=== PATIENT | female | born 1950 | race Caucasian/White ===

== ENCOUNTER 2016-08-24 10:52 | Inpatient (IN) | payer BC ==
[~2016-08-24] VITALS: Ht 157.5 cm; Wt 71.6 kg
[2016-08-28] MEDS ORDERED: FIBE0.523 PO ×2 (10:14)
[2016-08-28] MEDS ORDERED: OSTETAB7 PO (10:14)
[2016-08-28] MEDS ORDERED: TYLE650T9 PO (10:14)
[2016-08-28] MEDS ORDERED: MULT-12 PO (10:14)
[2016-08-28] MEDS ORDERED: MAGN400S7 PO (10:14)
[2016-08-28] MEDS ORDERED: RANI150T PO (10:14)
[2016-08-28] MEDS ORDERED: IBUP200C PO (10:14)
[2016-08-28] MEDS ORDERED: LOSA25TA PO (10:14)
[2016-08-28] MEDS ORDERED: MELA1CAP5 PO (10:14)
[2016-09-05] MEDS ORDERED: ceFAZolin 2 GM PREMIX 50 ML IV SCH (06:00)
[2016-09-05] MEDS ORDERED: LACTATED RINGER'S 1000 ML IV SCH (06:00)
[2016-09-05] MEDS ORDERED: INSULIN HUMAN REGULAR 1,000 UNITS/10 ML VIAL SQ PRN (06:00)
[2016-09-05] MEDS ORDERED: METOPROLOL TARTRATE 25 MG TAB PO PRN (06:00)
[2016-09-05] MEDS ORDERED: SODIUM CHLORID 0.9% 500 ML IV SCH (06:00)
[2016-09-05] MEDS ORDERED: CHLORHEXIDINE GLUCONATE 4% SOLN 120 ML BTL TOP SCH (06:00)
[2016-09-05 06:08] VITALS: BP 129/84; PULSE 88; RESP 20; TEMP 97.8; O2SAT 95
[2016-09-05] MEDS ORDERED: GENTAMICIN SULFATE 80 MG/2 ML VIAL ONE (06:16)
[2016-09-05] MEDS ORDERED: DEXAMETHASONE SOD PHOS 4 MG/ML VIAL ONE (07:57)
[2016-09-05] MEDS ORDERED: MIDAZOLAM HCL 5 MG/5 ML VIAL ONE (07:57)
[2016-09-05] MEDS: TRANEXAMIC ACID INJ 716 MG in SODIUM CHLORIDE 0.9% INJ 100 ML IV SCH ×2 (08:00→08:31)
[2016-09-05] MEDS ORDERED: EXPAREL PERI-ARTICULAR INJECTION (TOTAL VOL. 100 ML) P-ARTICULR SCH ×2 (08:00)
[2016-09-05] MEDS ORDERED: TRANEXAMIC ACID INJ 716 MG in SODIUM CHLORIDE 0.9% INJ 100 ML IV SCH (11:00)
[2016-09-05] MEDS ORDERED: DO NOT ADM ANY ANTICOAGULANT DRUGS XX PRN (11:00)
[2016-09-05] MEDS ORDERED: ZOLPIDEM TARTRATE 5 MG TAB PO PRN (11:15)
[2016-09-05] MEDS: LACTATED RINGER'S 1000 ML INJ 1,000 ML IV SCH (11:15)
[2016-09-05] MEDS ORDERED: Post-op Orders (for Pharmacy) MISC XX ONE (11:15)
[2016-09-05] MEDS ORDERED: PSYLLIUM PO SCH ×2 (11:15)
[2016-09-05] MEDS ORDERED: MORPHINE SULFATE 4 MG/ML INJ IV PUSH PRN (11:15)
[2016-09-05] MEDS ORDERED: TRANEXAMIC ACID INJ 0 MG in SODIUM CHLORIDE 0.9% INJ 100 ML IV SCH (11:15)
[2016-09-05] MEDS ORDERED: ONDANSETRON HCL 4 MG/2 ML VIAL IVP PRN (11:15)
[2016-09-05] MEDS ORDERED: SODIUM CHLORIDE 0.9% FLUSH 5 ML FLUSH IVF PRN (11:15)
[2016-09-05] MEDS ORDERED: MAGNESIUM HYDROXIDE SUSP 30 ML CUP PO PRN (11:15)
[2016-09-05] MEDS ORDERED: *morphine SULFATE 8 MG/ML PERIprocedure ONLY ONE (12:48)
[2016-09-05] MEDS ORDERED: BUPIVACAINE HCL PF 0.5% 30 ML VIAL NB ONE (12:55)
--- NOTE | 2016-09-05 13:03 | RADRPT ---
EXAM DATE/TIME: 09/05/2016 11:46 [place] COMPARISON: No previous studies available for comparison. INDICATIONS : Post op right knee replacement. MEDICAL HISTORY : None. SURGICAL HISTORY : None. ENCOUNTER: Initial ACUITY: 1 day PAIN SCORE: 0/10 LOCATION: Right knee FINDINGS: AP and lateral views of the right knee were obtained and demonstrate the patient status post total kn ee arthroplasty. The femoral and tibial components are intact. The patellar component is unremarkable . There are surgical drains in place. Anterior soft tissue swelling is noted with mild overlying em fact. CONCLUSION: SPECT postoperative changes status post arthroplasty. Dex Tabor MD on September 05, 2016 at 13:01 Board Certified Radiologist. This report was verified electronically.
[2016-09-05] MEDS ORDERED: *Lactated Ringer's INJ 1,000 ML IV ONE (13:28)
[2016-09-05] MEDS ORDERED: ePHEDrine/NS 25 MG/5 ML SYR IV ONE (13:28)
[2016-09-05] MEDS ORDERED: PROPOFOL 200 MG/20 ML AMP IV ONE (13:28)
[2016-09-05] MEDS ORDERED: PHENYLEPH/NS 1000 MCG/10 ML SYR IV ONE (13:28)
[2016-09-05] MEDS: ACETAMINOPHEN/HYDROcodone 325 MG/7.5 MG TAB PO PRN (15:04)
[2016-09-05] MEDS: KETOROLAC TROMETHAMINE 30 MG/ML (IVP) VIAL IVP SCH ×2 (15:05→20:17)
--- NOTE | 2016-09-05 17:33 | PD.CONS ---
HPI Service [facility] Consult Requested By Dr. Biswas Reason for Consult Medical management Primary Care Physician Venkatesh Perez MD Diagnoses: History of Present Illness Patient is a very pleasant 66-year-old female very active who is admitted under orthopedic services and underwent right total knee arthroplasty today. Patient apparently has been having pain for the last 2 years worsening over the past few months. She has history of chronic constipation and had had 9 colonoscopies in the past. She takes the very specific bowel regimen that works for her. She is currently postop day 0 awake alert very interactive denies any pain currently. Review of Systems Constitutional: DENIES: Diaphoretic episodes, Fatigue, Fever, Weight gain, Weight loss, Chills, Dizziness, Change in appetite, Night Sweats Endocrine: DENIES: Abnorml menstrual pattern, Heat/cold intolerance, Polydipsia , Polyuria, Polyphagia Eyes: DENIES: Blurred vision, Diplopia, Eye inflammation, Eye pain, Vision loss , Photosensitivity, Double Vision Ears, nose, mouth, throat: DENIES: Tinnitus, Hearing loss, Vertigo, Nasal discharge, Oral lesions, Throat pain, Hoarseness, Ear Pain, Running Nose, Epistaxis, Sinus Pain, Toothache, Odynophagia Respiratory: DENIES: Apneas, Cough, Snoring, Wheezing, Hemoptysis, Sputum production, Shortness of breath Cardiovascular: DENIES: Chest pain, Palpitations, Syncope, Dyspnea on Exertion , PND, Lower Extremity Edema, Orthopnea, Claudication Gastrointestinal: COMPLAINS OF: Constipation Genitourinary: DENIES: Abnormal vaginal bleeding, Dysmenorrhea, Dyspareunia, Sexual dysfunction, Urinary frequency, Urinary incontinence, Urgency, Hematuria , Dysuria, Nocturia, Vaginal discharge Musculoskeletal: COMPLAINS OF: Joint pain, DENIES: Muscle aches, Stiffness, Joint Swelling, Back pain, Neck pain Integumentary: DENIES: Abnormal pigmentation, Pruritus, Rash, Nail changes, Breast masses, Breast skin changes, Nipple discharge Hematologic/lymphatic: DENIES: Bruising, Lymphadenopathy Immunologic/allergic: DENIES: Eczema, Urticaria Neurologic: DENIES: Abnormal gait, Headache, Localized weakness, Paresthesias, Seizures, Speech Problems, Tremor, Poor Balance Psychiatric: DENIES: Anxiety, Confusion, Mood changes, Depression, Hallucinations, Agitation, Suicidal Ideation, Homicidal Ideation, Delusions Past Family Social History Allergies: Coded Allergies: Sulfa (Verified Allergy, Severe, Anaphylaxis, 08/28/16) Beta Blockers (Verified Adverse Reaction, Severe, hair falls out or develops severe cough, 09/05/16) Past Medical History Chronic constipation patient had had 9 colonoscopies in the past history of polyps removed. Past Surgical History Bilateral carpal tunnel surgery Uterine fibroid removal Reported Medications Tylenol Lactulose 25 cc daily Milk of magnesia 45 cc daily Psyllium 520 mg daily Ranitidine 150 mg twice a day Multivitamin Melatonin bedtime Active Ordered Medications See EMR Family History Very strong family history of colon cancer Social History No history of smoking Drinks 2 margaritas a year occasional wine Physical Exam Vital Signs Vital Signs Date Time Temp Pulse Resp B/P Pulse Ox O2 Delivery O2 Flow Rate FiO2 09/05/16 16:05 15 09/05/16 16:04 15 09/05/16 13:30 15 09/05/16 10:47 97.8 99 14 93/51 95 Nasal Cannula 2 09/05/16 06:08 97.8 88 20 129/84 95 Physical Exam GENERAL: This is a well-nourished, well-developed patient, in no apparent distress. SKIN: No rashes, ecchymoses or lesions. Cool and dry. HEAD: Atraumatic. Normocephalic. No temporal or scalp tenderness. EYES: Pupils equal round and reactive. Extraocular motions intact. No scleral icterus. No injection or drainage. ENT: Nose without bleeding, purulent drainage or septal hematoma. Throat without erythema, tonsillar hypertrophy or exudate. Uvula midline. Airway patent. NECK: Trachea midline. No JVD or lymphadenopathy. Supple, nontender, no meningeal signs. CARDIOVASCULAR: Regular rate and rhythm without murmurs, gallops, or rubs. RESPIRATORY: Clear to auscultation. Breath sounds equal bilaterally. No wheezes , rales, or rhonchi. GASTROINTESTINAL: Abdomen soft, non-tender, nondistended.. No guarding. MUSCULOSKELETAL: Right lower extremity with postop elastic bandage in place NEUROLOGICAL: Awake and alert. Grossly intact Laboratory Laboratory Tests Test 09/05/16 06:10 Blood Type A POSITIVE Antibody Screen NEGATIVE Blood Bank Comment Imaging Last Impressions Knee X-Ray 09/05/16 1101 Signed Impressions: Service Date/Time: Monday, September 05, 2016 11:46 - CONCLUSION: SPECT postoperative changes status post arthroplasty. Dex Tabor MD Assessment and Plan Assessment and Plan 66-year-old female Status post right total knee arthroplasty 09/05 Orthopedic service following PRN pain meds History of chronic constipation Continue on home bowel regimen Continue on ranitidine 150 mg twice a bid History of hypertension Continue on Cozaar 25 mg daily Continue on her melatonin when necessary at at bedtime for sleep DVT prophylaxis per primary service- placed on aspirin 325 milligrams by mouth twice a Thank you for this consult we'll follow patient with you Discharge planning patient wants to go home with home physical therapy. case management consulted Discussed Condition With Patient and at bedside Chris Hayes MD Sep 05, 2016 17:33
[2016-09-05 17:40] VITALS: BP 97/67; PULSE 96; RESP 18; TEMP 96.4; O2SAT 95
[2016-09-05 20:00] VITALS: BP 93/59; PULSE 91; RESP 17; TEMP 96.4; O2SAT 94
[2016-09-05] MEDS: SODIUM CHLORIDE 0.9% FLUSH 5 ML FLUSH IVF SCH (20:18)
[2016-09-05] MEDS: FAMOTIDINE 20 MG TAB PO SCH (20:18)
[2016-09-05] MEDS ORDERED: MELATONIN PO SCH (21:00)
[2016-09-05] MEDS ORDERED: BLACK COHOSH PO SCH (21:00)
[2016-09-05] MEDS ORDERED: ACETAMINOPHEN PO SCH (21:00)
[2016-09-05] MEDS ORDERED: MAGNESIUM HYDROXIDE SUSP 30 ML CUP PO SCH (21:00)
[2016-09-05] MEDS ORDERED: NATURAL PRODUCTS PO SCH (21:00)
[2016-09-05] MEDS ORDERED: HOPS PO SCH (21:00)
[2016-09-06] VITALS (7 sets, daily range): BP systolic 96–126; BP diastolic 59–78; PULSE 82–103; RESP 16; TEMP 95.9–97.1; O2SAT 94–98
[2016-09-06] MEDS: LACTATED RINGER'S 1000 ML INJ 1,000 ML IV SCH ×2 (01:18→12:01)
[2016-09-06] MEDS: KETOROLAC TROMETHAMINE 30 MG/ML (IVP) VIAL IVP SCH ×4 (01:18→20:45)
[2016-09-06 06:56] LABS: HEMATOCRIT 26.4 % (35.0-46.0); REVIEW FLAG FINAL
--- NOTE | 2016-09-06 07:05 | PD.ORT.PN ---
Subjective Post Op Day #: 1 Subjective Remarks She is doing well. There is not much pain. Range of Motion -10 to 80 degrees. Distance Walked 70 feet. Objective Vitals Vital Signs Date Time Temp Pulse Resp B/P Pulse Ox O2 Delivery O2 Flow Rate FiO2 09/06/16 04:00 96.7 88 16 126/78 97 09/06/16 00:00 96.8 82 16 106/63 94 09/05/16 20:00 96.4 91 17 93/59 94 09/05/16 17:40 96.4 96 18 97/67 95 09/05/16 17:20 97.5 68 16 110/72 95 Room Air 09/05/16 16:05 15 09/05/16 16:04 15 09/05/16 13:30 15 09/05/16 13:00 97.5 86 14 111/70 98 Nasal Cannula 2 09/05/16 12:45 88 14 118/65 99 Nasal Cannula 2 09/05/16 12:30 80 14 117/72 99 Nasal Cannula 2 09/05/16 12:15 80 14 108/69 99 Nasal Cannula 2 09/05/16 12:00 79 14 115/74 99 Nasal Cannula 2 09/05/16 11:45 80 14 109/67 98 Nasal Cannula 2 09/05/16 11:30 83 14 105/65 97 Nasal Cannula 2 09/05/16 11:15 83 14 95/65 95 Nasal Cannula 2 09/05/16 11:00 85 14 99/57 96 Nasal Cannula 2 09/05/16 10:47 97.8 99 14 93/51 95 Nasal Cannula 2 I/O 09/05/16 09/05/16 09/05/16 09/06/16 09/06/16 09/06/16 07:00 15:00 23:00 07:00 15:00 23:00 Intake Total 2065 ml 240 ml 360 ml Output Total 1865 ml Balance 200 ml 240 ml 360 ml Intake Oral 240 ml 240 ml 360 ml IV Total 425 ml Other 1400 ml Output Urine Total 1600 ml Drainage Total 65 ml Estimated Blood Loss 200 ml # Voids 1 2 # Bowel Movements 0 1 Result Diagram: 09/06/16 0537 Imaging Last 24 hours Impressions Knee X-Ray 09/05/16 1101 Signed Impressions: Service Date/Time: Monday, September 05, 2016 11:46 - CONCLUSION: SPECT postoperative changes status post arthroplasty. Dex Tabor MD Objective Remarks She is resting comfortably, supine in bed in the CPM. The neurovascular status is intact. The dressing is dry and intact. Assessment & Plan Ortho Post Op Day #: 1 Problem List: (1) Status post total right knee replacement Plan: Continue postop care and PT. Assessment and Plan Condition: Good. Orthopaedically stable. DVT prophylaxis: ED stockings, sequentials, Xarelto. Discharge plans: Home with [facility]. Has appointment. Sara Biswas MD (Charles) Sep 06, 2016 07:05
--- NOTE | 2016-09-06 08:22 | HHI.FF ---
Face to Face Verification Diagnosis: (1) Status post total right knee replacement Physical Therapy Gait training Knee: Total knee, Protocol: Right, Full weight bearing Right LE Weight Bearing: WB as tolerated Right LE Range of Motion: Active ROM (AROM, AAROM, PROM, PRE. ROM goal is 0 to 135 degrees.) Nursing Nursing: Dressing changes Dressing Changes: Daily dressing change, Coverderm/Primapore Additional Instructions Remove steristrips on postop day 14. I have seen patient Laurel Peraza on 09/06/16. My clinical findings support the need for the requested home health care services because: Ltd mobility - disease progression Limited ability to care for self High risk of falls I certify that my clinical findings support that this patient is homebound because: Post-op weakness Unsteady gait/balance Unsafe to leave home unassisted Sara Biswas MD (Charles) Sep 06, 2016 08:22
[2016-09-06] MEDS ORDERED: WALKER WHEELS/F1 MIS (08:24)
[2016-09-06] MEDS ORDERED: HYDR-3580 PO (08:24)
[2016-09-06] MEDS ORDERED: ASPI81TA11 PO (08:24)
[2016-09-06] MEDS ORDERED: MISC-163 (08:24)
[2016-09-06] MEDS: MULTIVITAMIN HEMATINIC THERAPEUTIC TAB PO SCH (09:00)
[2016-09-06] MEDS: LOSARTAN 25 MG TAB PO SCH (09:09)
[2016-09-06] MEDS: FAMOTIDINE 20 MG TAB PO SCH ×2 (09:10→20:47)
[2016-09-06] MEDS: ACETAMINOPHEN/HYDROcodone 325 MG/7.5 MG TAB PO PRN ×3 (09:11→18:19)
[2016-09-06] MEDS: SODIUM CHLORIDE 0.9% FLUSH 5 ML FLUSH IVF SCH ×2 (09:12→20:47)
[2016-09-06] MEDS ORDERED: ASPIRIN EC 81 MG TABEC PO SCH (10:00)
--- NOTE | 2016-09-06 10:03 | HHI.PR ---
Subjective Remarks patient very motivated with physical therapy pain controlled Objective Vitals Vital Signs Date Time Temp Pulse Resp B/P Pulse Ox O2 Delivery O2 Flow Rate FiO2 09/06/16 04:00 96.7 88 16 126/78 97 09/06/16 00:00 96.8 82 16 106/63 94 09/05/16 20:00 96.4 91 17 93/59 94 09/05/16 17:40 96.4 96 18 97/67 95 09/05/16 17:20 97.5 68 16 110/72 95 Room Air 09/05/16 16:05 15 09/05/16 16:04 15 09/05/16 13:30 15 09/05/16 13:00 97.5 86 14 111/70 98 Nasal Cannula 2 09/05/16 12:45 88 14 118/65 99 Nasal Cannula 2 09/05/16 12:30 80 14 117/72 99 Nasal Cannula 2 09/05/16 12:15 80 14 108/69 99 Nasal Cannula 2 09/05/16 12:00 79 14 115/74 99 Nasal Cannula 2 09/05/16 11:45 80 14 109/67 98 Nasal Cannula 2 09/05/16 11:30 83 14 105/65 97 Nasal Cannula 2 09/05/16 11:15 83 14 95/65 95 Nasal Cannula 2 09/05/16 11:00 85 14 99/57 96 Nasal Cannula 2 09/05/16 10:47 97.8 99 14 93/51 95 Nasal Cannula 2 I/O 09/05/16 09/05/16 09/05/16 09/06/16 09/06/16 09/06/16 07:00 15:00 23:00 07:00 15:00 23:00 Intake Total 2065 ml 811 ml 360 ml Output Total 1865 ml 70 ml 70 ml Balance 200 ml 741 ml 290 ml Intake Oral 240 ml 240 ml 360 ml IV Total 425 ml 571 ml Other 1400 ml Output Urine Total 1600 ml Drainage Total 65 ml 70 ml 70 ml Estimated Blood Loss 200 ml # Voids 1 2 # Bowel Movements 0 1 Result Diagram: 09/06/16 0537 Imaging Last Impressions Knee X-Ray 09/05/16 1101 Signed Impressions: Service Date/Time: Monday, September 05, 2016 11:46 - CONCLUSION: SPECT postoperative changes status post arthroplasty. Dex Tabor MD Objective Remarks awake and alert, not in distress anicteric lungs clear regular rhythm abdomen soft, nontender right LE- post op dressing in place Procedures 09/05- right TKA A/P Assessment and Plan 66-year-old female Status post right total knee arthroplasty 09/05 Orthopedic service following PT daily. prn pain meds History of chronic constipation Continue on home bowel regimen Continue on ranitidine 150 mg twice a bid History of hypertension Continue on Cozaar 25 mg daily Postop Anemia VS stable started on MVI Continue on her melatonin when necessary at at bedtime for sleep DVT prophylaxis per primary service- placed on aspirin 325 milligrams by mouth twice a day DC planning- patient prefers to go home with home PT CM ff along with us for DC needs/DME Chris Hayes MD Sep 06, 2016 10:03
[2016-09-06] MEDS: RIVAROXABAN 10 MG TAB PO SCH (13:10)
[2016-09-06] MEDS: MAGNESIUM HYDROXIDE SUSP 30 ML CUP PO SCH (20:45)
[2016-09-06] MEDS: DOCUSATE SODIUM 100 MG CAP PO SCH (20:47)
[2016-09-06] MEDS ORDERED: SENNOSIDES 8.6 MG TAB PO SCH (21:00)
[2016-09-07] VITALS: BP 108/65; PULSE 97; RESP 16; TEMP 98.2; O2SAT 95
[2016-09-07] MEDS: LACTATED RINGER'S 1000 ML INJ 1,000 ML IV SCH (00:31)
[2016-09-07] MEDS: ACETAMINOPHEN/HYDROcodone 325 MG/7.5 MG TAB PO PRN ×3 (02:10→12:31)
[2016-09-07] MEDS: KETOROLAC TROMETHAMINE 30 MG/ML (IVP) VIAL IVP SCH ×2 (02:14→08:24)
[2016-09-07 04:00] VITALS: BP 106/60; PULSE 94; RESP 17; TEMP 98.8; O2SAT 94
[2016-09-07 05:08] LABS: HEMATOCRIT 23.1 % (35.0-46.0); REVIEW FLAG FINAL
--- NOTE | 2016-09-07 06:55 | PD.ORT.PN ---
Subjective Post Op Day #: 2 Subjective Remarks She is doing well. There is not much pain. Range of Motion 0 to 90 degrees. Distance Walked 150 feet. Objective Vitals Vital Signs Date Time Temp Pulse Resp B/P Pulse Ox O2 Delivery O2 Flow Rate FiO2 09/07/16 04:00 98.8 94 17 106/60 94 09/07/16 00:00 98.2 97 16 108/65 95 09/06/16 22:06 96 21 09/06/16 20:00 97.1 103 16 107/66 96 09/06/16 19:19 16 09/06/16 16:00 95.9 89 16 96/59 97 09/06/16 14:24 97 21 09/06/16 10:11 16 09/06/16 10:11 16 09/06/16 07:52 96.2 94 16 111/73 98 I/O 09/06/16 09/06/16 09/06/16 09/07/16 09/07/16 09/07/16 07:00 15:00 23:00 07:00 15:00 23:00 Intake Total 360 ml 480 ml 240 ml Output Total 70 ml 100 ml 160 ml 40 ml Balance 290 ml 380 ml 80 ml -40 ml Intake Oral 360 ml 480 ml 240 ml Drainage Total 70 ml 100 ml 160 ml 40 ml # Voids 2 3 1 # Bowel Movements 1 0 Result Diagram: 09/07/16 0359 Imaging Last 24 hours Impressions Knee X-Ray 09/05/16 1101 Signed Impressions: Service Date/Time: Monday, September 05, 2016 11:46 - CONCLUSION: SPECT postoperative changes status post arthroplasty. Dex Tabor MD Objective Remarks She is resting comfortably, supine in bed in the CPM. The neurovascular status is intact. The dressing is dry and intact. Assessment & Plan Ortho Post Op Day #: 2 Problem List: (1) Status post total right knee replacement Plan: Continue postop care and PT. Assessment and Plan Condition: Good. Orthopaedically stable. DVT prophylaxis: ED stockings, sequentials, Xarelto. Discharge plans: Home with [facility]. Has appointment. Sara Biswas MD (Charles) Sep 07, 2016 06:55
[2016-09-07] MEDS ORDERED: XARE10TA PO (07:01)
--- NOTE | 2016-09-07 07:32 | MP ---
cc: Jerry BURNS. DATE OF SURGERY 09/05/2016 PREOPERATIVE DIAGNOSIS Primary osteoarthritis right knee. POSTOPERATIVE DIAGNOSIS Primary osteoarthritis right knee. OPERATION PERFORMED Right total knee arthroplasty using Cem Triathlon prosthesis (uncemented). SURGEON Magaly Burns MD ROUSTABOUT Alexis Schwartz CSFA ANESTHESIA Spinal with supplemental local and adductor canal block. INDICATIONS AND FINDINGS This 66-year-old woman has a 5 to 6-year history of right knee pain that has progressively worsened in spite of treatment with anti-inflammatory agents, analgesics, activity modification, exercise, ambulatory aids and physical therapy. These no longer give improvement. [place] she walks very slowly but has to rest. She has swelling and giving-way. She has difficulty with stairs and chairs. She needs to lean on a cart when shopping. Physical findings showed genu varum with tenderness in the medial compartment especially. X-rays showed loss of articular cartilage to [id number] in the medial compartment with tricompartmental osteophytes and subchondral sclerosis. Operative findings showed severe osteoarthritis particularly medial compartmental but also patellofemoral and lateral. She had a flexion deformity of about 20 degrees. There is medial laxity. She had severe osteophytes. PROSTHESIS USED Cem Triathlon prosthesis with the femur being a Press-Fit cruciate-retaining right femur size 3, with the tibial baseplate of tritanium 3 and a 9-mm X3 polyethylene spacer, also cruciate-retaining. The patella was a 32-mm asymmetric tritanium backed patella. PROCEDURE The patient received a regional anesthetic in the form of an abductor canal block preoperatively. She was transferred to the clean-air operating suite where a spinal anesthetic was administered. She was placed into a supine position on the operating table with a small bolster under the right hip. A pneumatic tourniquet was placed about the right thigh. The limb was then prepped with alcohol, Hibiclens and Chloraprep and draped in the usual manner with the knee draped free. She received tranexamic acid and prophylactic antibiotic in the form of Ancef at the appropriate intervals preoperatively. An appropriate time-out procedure was carried out. Local anesthesia was administered in the incision site prior to making the incision. An anterior incision was then made from about three fingerbreadths above the superior medial pole of the patella, down to the tibial tubercle on the medial side. The incision was deepened through the subcutaneous tissues to the retinacular structures which were exposed medially and laterally. A medial retinacular incision was then made from the superior medial pole of patella down to the tibial tubercle. This was then extended up in the quadriceps tendon splitting it longitudinally in the medial one-third. The patella was then reflected laterally. Medial and lateral dissection was carried out. The infrapatellar fat pad was debulked. The posterior surface of the patella was excised with the oscillating saw taking care to prevent injury to associated structures. Hemostasis was carefully achieved throughout the procedure with electrocautery. A patellar protector was applied to the posterior aspect of the patella. A fenestration was made in the distal end of the femur and proximal tibia for intramedullary referencing guides. The distal femoral cutting guide and jig were assembled for a 5-degree, 8-mm cut. Cutting block was stabilized with pins. The jig was removed. The distal femoral cut was completed with the oscillating saw. Whitesides line was marked. The sizing guide was positioned in place. The size was determined to be a size 3. The four-in-one cutting block was then positioned in place and held with pins. Anterior and posterior cuts were made followed by posterior and anterior chamfer cuts. Osteophytes were trimmed. Medial and lateral meniscectomies were completed. Proximal tibial cutting guide and jig were then assembled the appropriate depth of cut. The alignment was checked and the guide stabilized with pins. The depth of cut was verified with a stylus and then adjusted with the stylus. The cutting block was stabilized with pins. The jig was removed. The depth of cut was adjusted according to the spacer block. The proximal tibial cut was then completed with the oscillating saw taking care to prevent injury to associated structures. The spacer block verified the appropriate depth of cut. Local anesthesia was administered throughout the knee with Exparel. The tibial baseplate chosen was a size 3. With the 9-mm spacer inserted, the femoral component was impacted into place and seated appropriately. The tibial baseplate was positioned appropriately and stabilized with pins. The alignment was checked and found to be appropriate. The patella drill guide was positioned and drill holes made for the 32-mm patella. The patella trial was positioned. The knee was taken through a range of motion which was easily 0 degrees extension to 140 degrees of flexion with excellent stability in flexion and extension and appropriate tracking of the patella. The patella trial was removed. After femoral drill holes were made, the femoral trial was removed. The tibial spacer was removed. The tibial punch was impacted through its guide after placement of bone graft in the distal femur and proximal tibia. The tibial baseplate trial was removed. The tibial drill guide was positioned and drill holes made. This was removed. After cleaning the cut ends of bone with pulse lavage, the tibial baseplate was impacted into place and seated appropriately. The spacer was inserted into this. The femoral component was then impacted into place and seated appropriately. The patella was then positioned in place and held with the patella vice. The prosthesis used was a NanoSteel Triathlon prosthesis with the femur being an uncemented right size 3 cruciate-retaining, the tibia being a tritanium baseplate size 3 with a 9-mm spacer also cruciate-retaining of X3 polyethylene and the patella being a size 32-mm asymmetric tritanium backed patella. Range of motion was checked and was found to be 0 degrees extension to 140 degrees of flexion. There was excellent stability and excellent tracking. Wound closure then commenced using 0 Vicryl interrupted [id number] sutures for the retinacular and capsular structures, 2-0 Vicryl interrupted simple sutures with buried knots for the subcutaneous tissues and 4-0 Monocryl continuous subcuticular closure for the skin. The wounds were dressed with Steri-Strips followed by dry dressing, sterile Sof-Rol, cooling pad, further sterile Sof-Rol and Ravi bandage from the base of the toes to midthigh. The patient was transferred from the operating room to the recovery room in satisfactory condition having tolerated the procedure well. COUNTS Correct. SPECIMENS None. ESTIMATED BLOOD LOSS 200 mL. MD DEMARCO Bray/KWAKU /6:09 PM /6:57 AM
--- NOTE | 2016-09-07 07:37 | HHI.PR ---
Subjective Remarks looking forward to going home today had some pain last night- relieved with pain meds +BM, no melena or hematochezia Objective Vitals Vital Signs Date Time Temp Pulse Resp B/P Pulse Ox O2 Delivery O2 Flow Rate FiO2 09/07/16 04:00 98.8 94 17 106/60 94 09/07/16 00:00 98.2 97 16 108/65 95 09/06/16 22:06 96 21 09/06/16 20:00 97.1 103 16 107/66 96 09/06/16 19:19 16 09/06/16 16:00 95.9 89 16 96/59 97 09/06/16 14:24 97 21 09/06/16 10:11 16 09/06/16 10:11 16 09/06/16 07:52 96.2 94 16 111/73 98 I/O 09/06/16 09/06/16 09/06/16 09/07/16 09/07/16 09/07/16 07:00 15:00 23:00 07:00 15:00 23:00 Intake Total 360 ml 480 ml 240 ml 360 ml Output Total 70 ml 100 ml 160 ml 40 ml Balance 290 ml 380 ml 80 ml 320 ml Intake Oral 360 ml 480 ml 240 ml 360 ml Drainage Total 70 ml 100 ml 160 ml 40 ml # Voids 2 3 1 3 # Bowel Movements 1 0 1 Result Diagram: 09/07/16 0359 Imaging Last Impressions Knee X-Ray 09/05/16 1101 Signed Impressions: Service Date/Time: Monday, September 05, 2016 11:46 - CONCLUSION: SPECT postoperative changes status post arthroplasty. Dex Tabor MD Objective Remarks awake and alert, not in distress anicteric lungs clear regular rhythm abdomen soft, nontender right LE- post op dressing in place, on CPM Procedures 09/05- right TKA A/P Assessment and Plan 66-year-old female Status post right total knee arthroplasty 09/05 Orthopedic service following PT daily. prn pain meds History of chronic constipation Continue on home bowel regimen Continue on ranitidine 150 mg twice a bid, prn COlace Post op Anemia- VS stable on MVI, OP ff up with PCP History of hypertension Continue on Cozaar 25 mg daily Continue on her melatonin when necessary at at bedtime for sleep DVT prophylaxis per primary service- DC planning- patient prefers to go home with home PT if cleared with Primary service CM ff along with us for DC needs/DME arrangements PCP ff up with Dr Chris PICHARDO ff up with Orthopedic Chris Hayes MD Sep 07, 2016 07:37 Chris Hayes MD Sep 07, 2016 07:37
[2016-09-07 08:00] VITALS: BP 110/72; PULSE 93; RESP 18; TEMP 98.3; O2SAT 95
[2016-09-07] MEDS: FAMOTIDINE 20 MG TAB PO SCH (08:24)
[2016-09-07] MEDS: MAGNESIUM HYDROXIDE SUSP 30 ML CUP PO SCH (08:25)
[2016-09-07] MEDS: DOCUSATE SODIUM 100 MG CAP PO SCH (08:25)
[2016-09-07] MEDS: SODIUM CHLORIDE 0.9% FLUSH 5 ML FLUSH IVF SCH (08:25)
[2016-09-07] MEDS: MULTIVITAMIN HEMATINIC THERAPEUTIC TAB PO SCH (08:26)
[2016-09-07] MEDS: LOSARTAN 25 MG TAB PO SCH (08:27)
[2016-09-07] MEDS: RIVAROXABAN 10 MG TAB PO SCH (11:58)
[2016-09-07 12:00] VITALS: BP 125/77; PULSE 96; RESP 18; TEMP 98.3; O2SAT 92
== END 2016-09-07 15:36 | disposition home health service (06) | DRG 470 ==
LOC: HSDI 09-05 05:33 → EDUNIT# 09-05 08:30 → N06A 09-05 17:44
PROVIDERS: ADMIT Orthopaedic Surgery; ATTEND Orthopaedic Surgery
PROC: 3E0T3CZ (ICD-10-PCS; 2016-09-05)
PROC: 0SRC0JA Replacement of Right Knee Joint with Synthetic Substitute, Uncemented, Open Approach (ICD-10-PCS; principal; 2016-09-05 08:16)
DX: M17.11 Unilateral primary osteoarthritis, right knee (principal); M21.161 Varus deformity, not elsewhere classified, right knee; I10 Essential (primary) hypertension; K59.09 Other constipation; D64.9 Anemia, unspecified
CPT/HCPCS: 73560; 85014; 85018; 86850; 86900; 86901; 94150; C1776; C9290; J0690; J1100; J1580; J1885; J2250; J2270; J2370; J2405; J7120

== ENCOUNTER → 2016-08-28 | Outpatient (CLI) | payer BC ==
[~2016-08-28] MED LIST: ASPI81TA11 PO; FIBE0.523 PO; HYDR-3580 PO; IBUP200C PO; LOSA25TA PO; MAGN400S7 PO; MELA1CAP5 PO; MISC-163; MULT-12 PO; OSTETAB7 PO; RANI150T PO; TYLE650T9 PO; WALKER WHEELS/F1 MIS; XARE10TA PO
[2016-08-28 08:52] LABS: HEMATOCRIT 35.9 % (35.0-46.0); MEAN CELL VOLUME 86.6 FL (80.0-100.0); MEAN CORPUSCULAR HGB CONC 33.5 % (32.0-36.0); PLATELET COUNT 260 TH/MM3 (150-450); RED BLOOD COUNT 4.15 MIL/MM3 (4.00-5.30); REVIEW FLAG FINAL; WHITE BLOOD COUNT 6.5 TH/MM3 (4.0-11.0)
[2016-08-28 09:03] LABS: INTERNATIONAL NORMALIZED RATIO 0.9 RATIO; PROTHROMBIN TIME - PATIENT 10.1 SEC (9.8-11.6)
[2016-08-28 09:23] LABS: BICARBONATE 29.5 MEQ/L (21.0-32.0); POTASSIUM 4.3 MEQ/L (3.5-5.1)
[2016-08-28 09:51] LABS: GLUCOSE,URINE NEG (NEG); KETONE, URINE NEG (NEG); PH, URINE 7.5 (5.0-8.5); URINE COLOR YELLOW (YELLW/STRAW)
[2016-08-28 09:52] LABS: BLOOD, URINE NEG (NEG); MUCUS URINE FEW /lpf (OCC); NITRITE,URINE NEG (NEG)
[2016-08-28 09:53] LABS: COMMENT (UR) CATH-CULT NOT IND; CULTURE IF INDICATED CATH CULTURE NOT IND
--- NOTE | 2016-08-29 17:03 | EKG ---
Date Performed: 08/28/2016 Time Performed: 08:36:08 PTAGE: 66 years EKG: Sinus rhythm BORDERLINE RIGHT AXIS DEVIATION MINIMAL ST DEPRESSION BORDERLINE ECG NO PREVIOUS TRACING DOCTOR: Kosta Rodriguez Interpretating Date/Time 08/29/2016 16:59:51
== END ==
LOC: CPRE 08:05
PROVIDERS: ATTEND Orthopaedic Surgery
DX: Z01.812 Encounter for preprocedural laboratory examination (principal); Z01.810 Encounter for preprocedural cardiovascular examination; M17.11 Unilateral primary osteoarthritis, right knee
CPT/HCPCS: 36415; 80048; 81001; 85027; 85610; 85730; 93005

== ENCOUNTER → 2017-06-29 | Outpatient (CLI) | payer MEDICARE ==
[~2017-06-29] MED LIST changes: -ASPI81TA11 PO; +ASPI81TA23 PO; +CALC1TAB12 PO; +FIBE625T10 PO; -HYDR-3580 PO; +MAPA500T13 PO; +MULTTAB67 PO
[2017-06-29 09:47] LABS: MEAN CELL VOLUME 82.1 FL (80.0-100.0); MEAN CORPUSCULAR HEMOGLOBIN 27.1 PG (27.0-34.0); PLATELET COUNT 272 TH/MM3 (150-450); RED BLOOD COUNT 4.14 MIL/MM3 (4.00-5.30); RED CELL DISTRIBUTION WIDTH 18.4 % (11.6-17.2); REVIEW FLAG FINAL; WHITE BLOOD COUNT 6.6 TH/MM3 (4.0-11.0)
[2017-06-29 09:59] LABS: APTT (PATIENT) 24.2 SEC (24.3-30.1); PROTHROMBIN TIME - PATIENT 10.1 SEC (9.8-11.6)
[2017-06-29 10:04] LABS: BLOOD, URINE NEG (NEG); GLUCOSE,URINE NEG (NEG); KETONE, URINE NEG (NEG); MUCUS URINE FEW /lpf (OCC); NITRITE,URINE NEG (NEG); URINE COLOR LIGHT-YELLOW (YELLW/STRAW)
[2017-06-29 10:09] LABS: COMMENT (UR) CATH-CULT NOT IND; CULTURE IF INDICATED CATH CULTURE NOT IND
[2017-06-29 10:19] LABS: BICARBONATE 27.7 MEQ/L (21.0-32.0)
--- NOTE | 2017-06-30 14:01 | EKG ---
Date Performed: 06/29/2017 Time Performed: 09:17:18 PTAGE: 67 years EKG: Sinus rhythm with borderline first degree AV block PREVIOUS TRACING : 08/28/2016 08.36 Compared to prior tracing no significant change DOCTOR: Herson Richardson Interpretating Date/Time 06/30/2017 14:00:39
== END ==
LOC: CPRE 08:55
PROVIDERS: ATTEND Orthopaedic Surgery
DX: Z01.812 Encounter for preprocedural laboratory examination (principal); Z01.810 Encounter for preprocedural cardiovascular examination; M17.12 Unilateral primary osteoarthritis, left knee; M21.162 Varus deformity, not elsewhere classified, left knee; M79.609 Pain in unspecified limb; I10 Essential (primary) hypertension; I44.0 Atrioventricular block, first degree
CPT/HCPCS: 36415; 80048; 81001; 85027; 85610; 85730; 93005

== ENCOUNTER 2017-07-24 05:08 | Inpatient (IN) | payer MEDICARE ==
[~2017-07-24] VITALS: Ht 157.5 cm; Wt 72.0 kg
[~2017-07-24 05:08] MED LIST changes: -ASPI81TA23 PO; -FIBE0.523 PO; -IBUP200C PO; -MELA1CAP5 PO; -MISC-163; -MULT-12 PO; -OSTETAB7 PO; -RANI150T PO; -TYLE650T9 PO; -WALKER WHEELS/F1 MIS; -XARE10TA PO
[2017-07-24] MEDS ORDERED: EXPAREL PERI-ARTICULAR INJECTION (TOTAL VOL. 100 ML) P-ARTICULR SCH ×2 (05:45)
[2017-07-24] MEDS ORDERED: LACTATED RINGER'S 1000 ML IV PRN (05:45)
[2017-07-24] MEDS ORDERED: SODIUM CHLORID 0.9% 500 ML IV PRN (05:45)
[2017-07-24] MEDS ORDERED: CHLORHEXIDINE GLUCONATE 2 % 1 PACK (2 CLOTHS) TOPICAL PRN (05:45)
[2017-07-24] MEDS ORDERED: TRANEXAMIC ACID INJ 718 MG in SODIUM CHLORIDE 0.9% INJ 100 ML IV SCH ×2 (05:45→10:00)
[2017-07-24] MEDS ORDERED: POVIDONE IODINE 5% (ANTISEPSIS KIT) 4 APPLICATIONS EACH NARE PRN (05:45)
[2017-07-24] MEDS ORDERED: CHLORHEXIDINE GLUCONATE 4% SOLN 120 ML BTL TOPICAL SCH (05:45)
[2017-07-24] MEDS ORDERED: ceFAZolin 2 GM PREMIX 50 ML IV SCH (05:45)
[2017-07-24] MEDS ORDERED: GENTAMICIN SULFATE 80 MG/2 ML VIAL ONE (06:03)
[2017-07-24] MEDS ORDERED: MIDAZOLAM HCL 2 MG/2 ML VIAL ONE (06:33)
[2017-07-24] MEDS ORDERED: FAMOTIDINE 20 MG/2 ML VIAL ONE (06:33)
[2017-07-24] MEDS ORDERED: ACETAMINOPHEN 1000 MG/100 ML 100 ML IV ONE (06:33)
[2017-07-24] MEDS ORDERED: PROPOFOL 500 MG/50 ML INJ 50 ML ONE (06:34)
[2017-07-24] MEDS ORDERED: BUPIVACAINE HCL PF 0.5% 30 ML VIAL ONE (06:55)
[2017-07-24] MEDS ORDERED: ECASA81 PO (06:59)
[2017-07-24] MEDS ORDERED: ONDANSETRON HCL 4 MG/2 ML VIAL IVP PRN (07:00)
[2017-07-24] MEDS ORDERED: ACETAMINOPHEN/HYDROcodone 325 MG/7.5 MG TAB PO PRN (07:00)
[2017-07-24] MEDS ORDERED: TRANEXAMIC ACID INJ 0 MG in SODIUM CHLORIDE 0.9% INJ 100 ML IV SCH (07:00)
[2017-07-24] MEDS ORDERED: ZOLPIDEM TARTRATE 5 MG TAB PO PRN (07:00)
[2017-07-24] MEDS ORDERED: MAGNESIUM HYDROXIDE SUSP 30 ML CUP PO PRN (07:00)
[2017-07-24] MEDS ORDERED: CALCIUM POLYCARBOPHIL 625 MG TAB PO PRN ×2 (07:00)
[2017-07-24] MEDS ORDERED: MORPHINE SULFATE 2 MG/ML INJ IV PUSH PRN (07:00)
--- NOTE | 2017-07-24 07:01 | HHI.FF ---
Face to Face Verification Diagnosis: (1) Status post total left knee replacement Physical Therapy Knee: Total knee, Protocol: Left, Gait training, Full weight bearing Left LE Weight Bearing: WB as tolerated Left LE Range of Motion: Active ROM (AROM, AAROM, PROM. ROM goal is 0 to 135 degrees.) Nursing Nursing: Dressing changes (to start on postop day 7.) Dressing Changes: Daily dressing change, Coverderm/Primapore Additional Instructions Remove steristrips on postop day 14. I have seen patient Laurel Peraza on 07/24/17. My clinical findings support the need for the requested home health care services because: Ltd mobility - disease progression Limited ability to care for self High risk of falls I certify that my clinical findings support that this patient is homebound because: Post-op weakness Unsteady gait/balance Unsafe to leave home unassisted Sara Biswas MD (Charles) Jul 24, 2017 07:01
[2017-07-24] MEDS: MULTIVITAMIN TAB PO SCH (09:00)
[2017-07-24] MEDS: CALCIUM/VITAMIN D 250 MG/125 U TAB PO SCH ×2 (09:00→22:52)
[2017-07-24] MEDS ORDERED: Post-op Orders (for Pharmacy) XX ONE (09:00)
[2017-07-24] MEDS: LOSARTAN 25 MG TAB PO SCH (09:00)
[2017-07-24] MEDS: ASPIRIN EC 81 MG TABEC PO SCH ×2 (09:00→21:00)
--- NOTE | 2017-07-24 09:46 | PD.OP ---
Operative Report Date of Surgery: Jul 24, 2017 Preoperative Diagnosis: (1) Primary osteoarthritis of left knee Postoperative Diagnosis: (1) Primary osteoarthritis of left knee Procedure: Left total knee arthroplasty with Striker Triathlon prosthesis (uncemented with cemented patella) Anesthesia: Spinal with abductor canal block regional and local Surgeon: Allen Biswas M.D. [employer] Crop Farmer(s): Joanna Sigala RN Operation and Findings: Indications and Findings: This 67-year-old woman has had 6-8 years of progressively worsening knee pain. This is been treated with anti-inflammatory agents analgesics and activity modification ambulatory aid exercises and physical therapy. This has not improved to the point that she now is only able to walk a short distance because of pain and has difficulty ascending and descending stairs and doing other activities. She has increased deformity as well. Physical findings show genu valgum with palpable osteophytes crepitation and tenderness on motion. X-rays show loss of articular cartilage to bone on bone with some chondral sclerosis and tricompartmental osteophytes. Operative findings show severe osteoarthritis in medial compartment greater than lateral and patellofemoral with subchondral sclerosis and large osteophytes. The prosthesis used was a Gypsy Triathlon prosthesis. The femur was a size 4, cruciate retaining, uncemented. The tibial baseplate was a size 3 Tritanium with a 9 mm cruciate retaining X3 polyethylene spacer. The patella was a size 32 mm asymmetric Tritanium backed. The cement for the patella was Simplex.. The patient was brought to the clean-air operating suite. A spinal anesthetic was administered as well as a regional anesthetic by abductor canal block. The position was supine with a small bolster under the hip on the operative side. A pneumatic tourniquet was applied to the upper thigh. The lower extremity was then prepped with alcohol, Hibiclens and ChloraPrep and draped in the usual manner with the knee draped free. An appropriate timeout procedure was carried out. An incision was made from about 3 fingerbreadths above the superior medial pole of patella down the tibial tubercle on the medial side. The incision was deepened through the subcutaneous tissue to the right macular structures which were exposed medially and laterally. A medial retinacular incision was then made from the superior middle pole of patella down the tibial tubercle and up into the quadriceps tendon splitting it longitudinally and the medial one third. The patella was reflected. The infrapatellar fat pad was debulked. The anterior cruciate ligament was excised. Medial and lateral meniscectomies were initiated. Fenestrations were made in the distal femur and proximal tibia for intramedullary referencing guides. The distal femoral cutting guide and jig were then assembled for a 5, 8 mm cut. When this was fit position and placed cutting block was stabilized with pins. The jig was removed. The distal femoral cut was then completed with the oscillating saw. The sizing guide was then positioned in place along Whitesides line and the epicondylar axis and stabilized with pins. The femoral size was then determined as noted above. The 4-in-1 cutting block was then positioned in place. Anterior and posterior cuts were made followed by posterior and anterior chamfer cuts taking care to prevent injury to ligamentous structures. Osteophytes were then trimmed from the distal femur. A bone plug was then placed into the fenestration of the distal femur. The proximal tibia was then exposed. The medial and lateral meniscectomies were completed. The proximal tibial cutting guide was then positioned in place and stabilized with a pin for rotation. The depth of cut was then verified with a stylus off the lateral side. The cutting block was stabilized with pins. The jig was removed. The depth of cut was then verified and adjusted appropriately with the use of the spacer block. The proximal tibial cut was then made with the oscillating saw taking care to prevent injury to neurovascular and ligamentous structures. Proximal tibial bone was removed. Local anesthetic was administered with Exparel in the posterior capsule. The tibial baseplate trial was then positioned in place. After verifying the appropriate size, the base plate trial was positioned in place along with its spacer. The femoral component was then impacted into place. The alignment was checked. The tibial baseplate was then pinned in place on the tibia. Attention was directed to the patella. The patella drill guide was positioned in place for the appropriate sized patella. Patellar drilling was then carried out. The trial patella was positioned in place. The knee was taken through a range of motion which was easily 0 extension to 140. The patella trial was removed. The femoral drill holes were made. The femoral trials were removed. The tibial spacer was removed. A bone plug was placed into the proximal tibia. The tibial punch was impacted through the proximal tibial punch guide. This was all removed followed by placement of the tibial drill guide. The tibial drill holes were then made. The guide was removed. The cut ends of bone were then cleaned with pulse lavage. The tibial baseplate was then impacted into place and seated appropriately. The spacer was inserted. The the femoral component was then impacted into place and seated appropriately. The patella component was then seated with the patellar device and tightened appropriately. The patella did not stay seated. For this reason cementing of the patella was planned. Pulse lavage was used to clean the cut surface. The cement was applied with pressurization from the cement gun. Excess cement was trimmed. The cement was allowed to cure with the patella clamp in place. The knee was taken through a range of motion which was comparable to the previous range of motion with excellent stability in flexion and extension and appropriate patellofemoral tracking. The remainder of the Exparel was then injected throughout the knee as a local anesthetic. Drains were brought out the superior lateral aspect of the suprapatellar pouch. Wound closure then commenced using 0 Vicryl interrupted [id number] sutures for the capsular and fascial structures, 2-0 Vicryl interrupted simple sutures with buried knots for the subcutaneous tissues and 4-0 Monocryl, tenuous subcuticular closure for the skin. The wound was then dressed with Steri- Strips followed by Optifoam silver impregnated dressing. Sterile soft roll with a cooling pad and Ravi bandage from the base of the toes to mid thigh were then applied. Patient was then transferred from the operating room to the recovery room in satisfactory condition having tolerated procedure well. Counts are correct. Specimens: None. Estimated blood loss: 250 mL Sara Biswas MD (Charles) Jul 24, 2017 09:46
--- NOTE | 2017-07-24 09:51 | HHI.PR ---
Immediate Post Op Note Procedure Date: Jul 24, 2017 Pre Op Diagnosis: (1) Primary osteoarthritis of left knee Post Op Diagnosis: (1) Primary osteoarthritis of left knee Surgeon: Allen Biswas M.D. Case Loader Operator(s): Joanna Sigala RN Procedure: Left total knee arthroplasty with Striker Triathlon prosthesis (uncemented with cemented patella) Complications: None Specimen(s) removed: None Estimated blood loss: 250 mL Anesthesia: Regional Block (adductor canal block), Spinal, Local (bupivacaine liposomal) Drains: Hemovac (2) IVF Patient to: PACU Patient Condition: Good Implant/Devices: SEE IMPLANT LOG (if applicable) Date/Time of Procedure: SEE SURGICAL CARE RECORD Sara Biswas MD (Charles) Jul 24, 2017 09:51
[2017-07-24] MEDS ORDERED: HYDR-3580 PO (09:58)
[2017-07-24] MEDS ORDERED: *RESP: ALBUTEROL 2.5 MG/3 ML NEB (PRN) PERIprocedural Use ONLY NEB ONE (10:08)
--- NOTE | 2017-07-24 10:44 | RADRPT ---
EXAM DATE/TIME: 07/24/2017 10:16 [place] COMPARISON: No previous studies available for comparison. INDICATIONS : Left total knee replacement. MEDICAL HISTORY : Hypertension. SURGICAL HISTORY : Total knee replacement, left. ENCOUNTER: Initial ACUITY: 1 day PAIN SCORE: 0/10 LOCATION: Left knee. FINDINGS: Total knee arthroplasty is in place. The femoral, tibial, and patellar components appear intact. Th ere are no signs of loosening or fracture. CONCLUSION: Intact total knee arthroplasty for jamesEthel AlanaEthel Smith MD on July 24, 2017 at 10:42 Board Certified Radiologist. This report was verified electronically.
[2017-07-24] MEDS: KETOROLAC TROMETHAMINE 30 MG/ML (IVP) VIAL IVP SCH ×3 (10:50→22:50)
[2017-07-24] MEDS: LACTATED RINGER'S 1000 ML INJ 1,000 ML IV SCH ×2 (10:58→19:30)
[2017-07-24] MEDS ORDERED: DEXAMETHASONE SOD PHOS 4 MG/ML VIAL IV ONE (12:00)
[2017-07-24] MEDS ORDERED: PROPOFOL 200 MG/20 ML AMP IV ONE (12:00)
[2017-07-24] MEDS ORDERED: ONDANSETRON HCL 4 MG/2 ML VIAL IV PUSH ONE (12:00)
[2017-07-24] MEDS ORDERED: ePHEDrine/NS 25 MG/5 ML SYRINGE IV ONE (12:00)
[2017-07-24] MEDS ORDERED: PHENYLEPH/NS 1000 MCG/10 ML SYR IV ONE (12:00)
[2017-07-24 12:15] VITALS: BP 112/74; PULSE 93; RESP 16; TEMP 96.1; O2SAT 99
[2017-07-24 16:01] VITALS: BP 105/63; PULSE 93; RESP 16; TEMP 98; O2SAT 98
--- NOTE | 2017-07-24 16:54 | PD.CONS ---
HPI Service [facility] Hospitalists Consult Requested By Dr. Biswas. Reason for Consult Medical management. Primary Care Physician Venkatesh Perez MD Diagnoses: History of Present Illness This is a 67-year-old female with past medical history significant for hypertension and severe also arthritis of the bilateral knees who presents to [facility] for elective left total knee arthroplasty. The patient states that she has had arthritis for a long time and visited Dr. Biswas as an outpatient. Upon review of symptoms and imaging was decided to undergo an elective replacement of bilateral knees. The patient states that she had severe pain on bilateral knees which made ambulating difficult. Pain was nonradiating and rated 8/10 in intensity. The patient is status post right knee total replacement on 09/05/16. The patient denies any current pain. Denies chest pain, shortness of breath, dysuria, abdominal pain, nausea, vomiting, diarrhea. 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 As per RN report the patient has gotten up and walk to the bathroom with aid of a walker and back to the bed. Review of Systems As per history of present illness, other systems reviewed by me and negative. Past Family Social History Allergies: Coded Allergies: Sulfa (Sulfonamide Antibiotics) (Verified Allergy, Severe, Anaphylaxis, 07/24/17) acebutolol (Verified Adverse Reaction, Severe, hair falls out or develops severe cough, 07/24/17) atenolol (Verified Adverse Reaction, Severe, hair falls out or develops severe cough, 07/24/17) betaxolol (Verified Adverse Reaction, Severe, hair falls out or develops severe cough, 07/24/17) carvedilol (Verified Adverse Reaction, Severe, hair falls out or develops severe cough, 07/24/17) labetalol (Verified Adverse Reaction, Severe, hair falls out or develops severe cough, 07/24/17) metoprolol (Verified Adverse Reaction, Severe, hair falls out or develops severe cough, 07/24/17) nebivolol (Verified Adverse Reaction, Severe, hair falls out or develops severe cough, 07/24/17) pindolol (Verified Adverse Reaction, Severe, hair falls out or develops severe cough, 07/24/17) propranolol (Verified Adverse Reaction, Severe, hair falls out or develops severe cough, 07/24/17) sotalol (Verified Adverse Reaction, Severe, hair falls out or develops severe cough, 07/24/17) timolol (Verified Adverse Reaction, Severe, hair falls out or develops severe cough, 07/24/17) Past Medical History 1. Hypertension Past Surgical History 1. Right total knee arthroplasty. 2. Laparoscopic uterine cyst removal - reportedly benign. 3. Left knee arthroscopic surgery due to osteoarthritis. 4. Bilateral carpal tunnel surgery in hands. Reported Medications Reported Meds & Active Scripts Active Hydrocodone-Acetamin 7.5-325 (Hydrocodone/Acetaminophen) 7.5 Mg-325 Mg Tablet 1 Tab PO Q4H PRN Reported Mapap Extra Strength (Acetaminophen) 500 Mg Tab 2 Tab PO AC BREAKFAST PRN Calcium 500 +D (Calcium Carbonate-Cholecalciferol) 500-400 Mg-Unit Tab 1 Tab PO BID Fiber (Calcium Polycarbophil) 625 Mg Tab 3 Tab PO AC BREAKFAST PRN Fiber (Calcium Polycarbophil) 625 Mg Tab 2 Tab PO HS PRN Multiple Vitamin 1 Tab 1 Tab PO DAILY Giraldo Milk of Magnesia Liq (Magnesium Hydroxide) 400 Mg/5 Ml Susp 45 Ml PO HS Losartan (Losartan Potassium) 25 Mg Tab 25 Mg PO DAILY Active Ordered Medications Current Medications Medications (Trade) Dose Ordered Sig/Stephanie Route Start Time Stop Time Status Last Admin Lactated Ringer's 1,000 ml @ 30 mls/hr Q24H PRN IV 07/24/17 05:45 07/27/17 05:44 07/24/17 05:45 Sodium Chloride 500 ml @ 30 mls/hr [id number] PRN IV 07/24/17 05:45 07/27/17 05:44 (Betadine 5% Antisepsis Kit) 1 applic TRUCK TRAILER FINAL INSPECTOR PRN EACH NARE 07/24/17 05:45 07/27/17 05:44 07/24/17 06:00 (Chlorhexidine 2% Cloth) 3 pack TRUCK TRAILER FINAL INSPECTOR PRN TOPICAL 07/24/17 05:45 07/27/17 05:44 07/24/17 05:20 (Hibiclens 4% Top Soln) 1 applic ONCE TOPICAL 07/24/17 05:45 07/27/17 05:44 Cefazolin Sodium/ Dextrose 50 ml @ 100 mls/hr TRUCK TRAILER FINAL INSPECTOR IV 07/24/17 05:45 07/24/17 21:00 07/24/17 07:11 Tranexamic Acid 718 mg/Sodium Chloride 107.18 ml @ 200 mls/ hr ONCE IV 07/24/17 05:45 07/24/17 21:00 07/24/17 07:02 Tranexamic Acid 718 mg/Sodium Chloride 107.18 ml @ 200 mls/ hr ONCE IV 07/24/17 10:00 07/24/17 21:00 Bupivacaine Liposome 20 ml/ Sodium Chloride 100 ml @ 200 mls/hr ONCE P-ARTICULR 07/24/17 05:45 07/24/17 21:00 07/24/17 07:20 Lactated Ringer's 1,000 ml @ 80 mls/hr [id number] IV 07/24/17 07:00 07/24/17 10:58 Cefazolin Sodium 1000 mg/Sodium Chloride 100 ml @ 200 mls/hr Q6H IV 07/24/17 13:00 07/25/17 01:29 07/24/17 13:18 (Morphine Inj) 4 mg Q3H PRN IV PUSH 07/24/17 07:00 ([place] 7.5-325 Mg) 1 tab Q4H PRN PO 07/24/17 07:00 ([place] 7.5-325 Mg) 2 tab Q4H PRN PO 07/24/17 07:00 (Toradol Inj) 15 mg Q6H IVP 07/24/17 09:00 07/26/17 03:01 07/24/17 16:35 (Zofran Inj) 4 mg Q6H PRN IVP 07/24/17 07:00 (Colace) 100 mg BID PO 07/25/17 21:00 (Ambien) 5 mg HS PRN PO 07/24/17 07:00 (Milk Of Magnesia Liq) 30 ml DAILY PRN PO 07/24/17 07:00 (Ecotrin Ec) 81 mg BID PO 07/24/17 09:00 (Fiber Con) 1,250 mg HS PRN PO 07/24/17 07:00 (Fiber Con) 1,875 mg AC BREAKFAST PRN PO 07/24/17 07:00 (Cozaar) 25 mg DAILY PO 07/24/17 09:00 (Milk Of Magnesia Liq) 45 ml HS PO 07/24/17 21:00 (Oscal-D 250-125) 2 mg BID PO 07/24/17 09:00 (Theragran) 1 tab DAILY PO 07/24/17 09:00 Family History Notable for hypertension. Patient's both parents from lung cancer but they were heavy smokers. Social History Denies alcohol or tobacco use. Physical Exam Vital Signs Vital Signs Date Time Temp Pulse Resp B/P (MAP) Pulse Ox O2 Delivery O2 Flow Rate FiO2 07/24/17 12:15 96.1 93 16 112/74 (87) 99 07/24/17 12:00 97.5 88 16 115/71 (86) 100 Nasal Cannula 2 07/24/17 11:15 85 16 119/68 (85) 100 Nasal Cannula 2 07/24/17 11:00 85 16 109/67 (81) 98 Nasal Cannula 3 07/24/17 10:45 84 17 107/66 (80) 98 Nasal Cannula 3 07/24/17 10:30 82 15 96/56 (69) 99 Nasal Cannula 3 07/24/17 10:15 80 15 108/65 (79) 100 Nasal Cannula 3 07/24/17 10:02 96.7 86 15 109/62 (78) 96 Nasal Cannula 3 07/24/17 05:42 98.5 89 20 134/80 (98) 96 Physical Exam GENERAL: This is a well-nourished, well-developed patient, in no apparent distress. SKIN: No rashes, ecchymoses or lesions. Cool and dry. HEAD: Atraumatic. Normocephalic. No temporal or scalp tenderness. EYES: Pupils equal round and reactive. Extraocular motions intact. No scleral icterus. No injection or drainage. ENT: Nose without bleeding, purulent drainage or septal hematoma. Throat without erythema, tonsillar hypertrophy or exudate. Uvula midline. Airway patent. NECK: Trachea midline. No JVD or lymphadenopathy. Supple, nontender, no meningeal signs. CARDIOVASCULAR: Regular rate and rhythm without murmurs, gallops, or rubs. RESPIRATORY: Clear to auscultation. Breath sounds equal bilaterally. No wheezes , rales, or rhonchi. GASTROINTESTINAL: Abdomen soft, non-tender, nondistended. No hepato-splenomegaly , or palpable masses. No guarding. MUSCULOSKELETAL: Left knee is on immobilizer, there is moderate swelling, tender to palpation and range of motion is decreased. Negative Homans sign bilaterally. NEUROLOGICAL: Awake and alert. Cranial nerves II through XII intact. Motor and sensory grossly within normal limits. Five out of 5 muscle strength in all muscle groups. Normal speech. Imaging Last Impressions Knee X-Ray 07/24/17 0653 Signed Impressions: Service Date/Time: Monday, July 24, 2017 10:16 - CONCLUSION: Intact total knee arthroplasty for technique. WarnerEthel Smith MD Assessment and Plan Problem List: (1) Status post total left knee replacement ICD Code: Z96.652 - Presence of left artificial knee joint Plan: Management as per orthopedic surgery. Will continue patient's mycoplasma Xavier and FiberCon to prevent constipation. Pain control with [place] tablets a morphine as needed for breakthrough pain. (2) Primary osteoarthritis of left knee ICD Code: M17.12 - Unilateral primary osteoarthritis, left knee Plan: As above (3) HTN (hypertension) ICD Code: I10 - Essential (primary) hypertension Status: Acute Plan: Continue losartan 25 mg by mouth daily. Blood pressure seems stable. Assessment and Plan DVT prophylaxis: SCDs, chemoprophylaxis as per orthopedic surgery. Code Status Full code Discussed Condition With Patient Problem Qualifiers (1) HTN (hypertension): Qualified Codes: I10 - Essential (primary) hypertension Gilbert Oneill MD Jul 24, 2017 16:54
[2017-07-24] MEDS: ACETAMINOPHEN/HYDROcodone 325 MG/7.5 MG TAB PO PRN ×2 (17:49→22:50)
[2017-07-24 20:00] VITALS: BP 98/60; PULSE 102; RESP 20; TEMP 97.7; O2SAT 96
[2017-07-24] MEDS: MAGNESIUM HYDROXIDE SUSP 30 ML CUP PO SCH (21:00)
[2017-07-25] VITALS: BP 101/62; PULSE 90; RESP 20; TEMP 97.2; O2SAT 94
[2017-07-25] MEDS: KETOROLAC TROMETHAMINE 30 MG/ML (IVP) VIAL IVP SCH ×4 (03:55→21:39)
[2017-07-25 04:00] VITALS: BP 105/72; PULSE 87; RESP 20; TEMP 97; O2SAT 96
[2017-07-25] MEDS: ACETAMINOPHEN/HYDROcodone 325 MG/7.5 MG TAB PO PRN ×4 (04:27→21:40)
[2017-07-25 05:46] LABS: HEMOGLOBIN 7.8 GM/DL (11.6-15.3)
--- NOTE | 2017-07-25 07:47 | PD.ORT.PN ---
Subjective Post Op Day #: 1 Subjective Remarks She is doing well. She has minimal complaints related to her knee at this time. She has been able to walk well. She indicates that she can do a straight leg raise. Range of Motion -14-95 Distance Walked 60 feet with PT Objective Vitals Vital Signs Date Time Temp Pulse Resp B/P (MAP) Pulse Ox O2 Delivery O2 Flow Rate FiO2 07/25/17 04:00 97.0 87 20 105/72 (83) 96 07/25/17 00:00 97.2 90 20 101/62 (75) 94 07/24/17 20:00 97.7 102 20 98/60 (73) 96 07/24/17 17:35 20 07/24/17 16:01 98.0 93 16 105/63 (77) 98 07/24/17 12:15 96.1 93 16 112/74 (87) 99 07/24/17 12:00 97.5 88 16 115/71 (86) 100 Nasal Cannula 2 07/24/17 11:15 85 16 119/68 (85) 100 Nasal Cannula 2 07/24/17 11:00 85 16 109/67 (81) 98 Nasal Cannula 3 07/24/17 10:45 84 17 107/66 (80) 98 Nasal Cannula 3 07/24/17 10:30 82 15 96/56 (69) 99 Nasal Cannula 3 07/24/17 10:15 80 15 108/65 (79) 100 Nasal Cannula 3 07/24/17 10:02 96.7 86 15 109/62 (78) 96 Nasal Cannula 3 I/O 07/24/17 07/24/17 07/24/17 07/25/17 07/25/17 07/25/17 07:00 15:00 23:00 07:00 15:00 23:00 Intake Total 2330 ml 300 ml 560 ml Output Total 330 ml 675 ml 350 ml Balance 2000 ml -375 ml 210 ml Intake Oral 480 ml 300 ml 560 ml IV Total 1850 ml Output Urine Total 600 ml 300 ml Drainage Total 80 ml 75 ml 50 ml Estimated Blood Loss 250 ml # Voids 3 # Bowel Movements 0 0 0 Result Diagram: 07/25/17 0454 Imaging Last 72 hours Impressions Knee X-Ray 07/24/17 0653 Signed Impressions: Service Date/Time: Monday, July 24, 2017 10:16 - CONCLUSION: Intact total knee arthroplasty for technique. Perkins Elliott Smith MD Objective Remarks She is resting out of bed in a chair comfortably with her legs up. Her neurovascular status is intact. The dressing is dry and intact. She is able to easily do a straight leg raise on the operative side. Assessment & Plan Ortho Post Op Day #: 1 Problem List: (1) Primary osteoarthritis of left knee ICD Codes: M17.12 - Unilateral primary osteoarthritis, left knee Status: Resolved (2) Status post total left knee replacement ICD Codes: Z96.652 - Presence of left artificial knee joint Plan: Continue postop care and PT. Assessment and Plan Condition: Good. Orthopedically stable. DVT prophylaxis: TEDs, aspirin, sequentials. Discharge plans: Home with home health care. An appointment was scheduled through the office. Prescriptions: [place] 7.5/325. Sara Biswas MD (Charles) Jul 25, 2017 07:47
[2017-07-25 08:00] VITALS: BP 117/74; PULSE 81; RESP 19; TEMP 96.5; O2SAT 100
[2017-07-25] MEDS: LACTATED RINGER'S 1000 ML INJ 1,000 ML IV SCH ×2 (08:00→20:30)
--- NOTE | 2017-07-25 08:22 | HHI.DS ---
Discharge Summary Admission Date Jul 24, 2017 at 05:08 Discharge Date: Jul 26, 2017 Admitting Diagnosis Primary osteoarthritis, left knee. Diagnosis: (1) Primary osteoarthritis of left knee Diagnosis: Principal ICD Codes: M17.12 - Unilateral primary osteoarthritis, left knee Status: Resolved (2) Status post total left knee replacement ICD Codes: Z96.652 - Presence of left artificial knee joint Procedures Left total knee arthroplasty with [place] Triathlon prosthesis (uncemented) on . Brief History This is a 67 year old female patient has had long-standing arthritis in her left knee which has been nonresponsive to conservative care as detailed in the history and physical examination. Her physical findings were consistent with osteoarthritis in the left knee with genu varum, palpable osteophytes, crepitation and tenderness on motion. X-rays showed severe osteoarthritis particularly in the medial compartment. CBC/BMP: 07/25/17 0454 Significant Findings Laboratory Tests Test 07/25/17 04:54 Hemoglobin 7.8 GM/DL (11.6-15.3) Hematocrit 23.0 % (35.0-46.0) Imaging Last 72 hours Impressions Knee X-Ray 07/24/17 0653 Signed Impressions: Service Date/Time: Monday, July 24, 2017 10:16 - CONCLUSION: Intact total knee arthroplasty for technique. Gregorio Smith MD PE at Discharge She is resting comfortably supine in bed in the [facility]. Her neurovascular status is intact. The dressing is dry and intact. She is able to easily do a straight leg raise on the operative side. Hospital Course The patient was admitted on 07/24/2017. She had a total knee arthroplasty carried out under spinal anesthetic on that date. Preoperatively and subsequently postoperatively, she was on prophylactic antibiotics in the form of Ancef. She also received tranexamic acid to help with him a stasis. Anticoagulation was initiated postoperatively with ED stockings, sequentials and aspirin. She started on physical therapy the day of surgery. She walked well and had fairly good motion. This is detailed in the ischial therapy notes. She was able to walk up to 400 feet with the physical therapist. Her range of motion was 0 extension to 97 of flexion. She is discharged home with home health care. Pt Condition on Discharge: Good Discharge Disposition: Disch w/ Home Health Serv Discharge Instructions Diet Instructions: As Tolerated, No Restrictions Activities You Can Perform: Full Weight Bearing, Shower Only-No Bath Activities to Avoid: Lifting/Bending, Strenuous Activity, Bathing, Driving Follow up Referrals: Orthopedics with Sara Biswas MD ([place]) New Medications: Aspirin DR (Aspirin DR) 81 Mg Tabdr 81 MG PO BID for Prevent Blood Clot for 30 Days, #60 TAB Hydrocodone/Acetaminophen (Hydrocodone-Acetamin 7.5-325) 7.5 Mg-325 Mg Tablet 1 TAB PO Q4H PRN for PAIN SCALE 1 TO 10, #50 TAB Continued Medications: Acetaminophen (Mapap Extra Strength) 500 Mg Tab 2 TAB PO AC BREAKFAST PRN for PAIN, TAB 0 Refills Calcium Carbonate-Cholecalciferol (Calcium 500 +D) 500-400 Mg-Unit Tab 1 TAB PO BID for Calcium Supplement, TAB 0 Refills Calcium Polycarbophil (Fiber) 625 Mg Tab 2 TAB PO HS PRN for CONSTIPATION, TAB 0 Refills Calcium Polycarbophil (Fiber) 625 Mg Tab 3 TAB PO AC BREAKFAST PRN for CONSTIPATION, TAB 0 Refills Losartan (Losartan) 25 Mg Tab 25 MG PO DAILY for Blood Pressure Management, #30 TAB 0 Refills Magnesium Hydroxide Liq (Giraldo Milk of Magnesia Liq) 400 Mg/5 Ml Susp 45 ML PO HS for INDIGESTION OR UPSET STOMACH, #1 BOTTLE 0 Refills Multiple Vitamin (Multiple Vitamin) 1 Tab 1 TAB PO DAILY for Nutritional Supplement, TAB 0 Refills Sara Biswas MD ([place]) Jul 25, 2017 08:22
[2017-07-25] MEDS: ASPIRIN EC 81 MG TABEC PO SCH ×2 (09:16→21:40)
[2017-07-25] MEDS: LOSARTAN 25 MG TAB PO SCH (09:16)
[2017-07-25] MEDS: MULTIVITAMIN TAB PO SCH (09:16)
[2017-07-25] MEDS: CALCIUM/VITAMIN D 250 MG/125 U TAB PO SCH ×2 (09:17→21:40)
[2017-07-25 12:00] VITALS: BP 93/60; PULSE 99; RESP 18; TEMP 96.1; O2SAT 98
--- NOTE | 2017-07-25 12:54 | HHI.PR ---
Subjective Remarks Pain in post surgical knee is controlled. Denies cough, cp, sob. Afebrile Objective Vitals Vital Signs Date Time Temp Pulse Resp B/P (MAP) Pulse Ox O2 Delivery O2 Flow Rate FiO2 07/25/17 12:00 96.1 99 18 93/60 (71) 98 07/25/17 08:00 96.5 81 19 117/74 (88) 100 07/25/17 04:00 97.0 87 20 105/72 (83) 96 07/25/17 00:00 97.2 90 20 101/62 (75) 94 07/24/17 20:00 97.7 102 20 98/60 (73) 96 07/24/17 17:35 20 07/24/17 16:01 98.0 93 16 105/63 (77) 98 I/O 07/24/17 07/24/17 07/24/17 07/25/17 07/25/17 07/25/17 06:59 14:59 22:59 06:59 14:59 22:59 Intake Total 2330 ml 300 ml 560 ml Output Total 330 ml 675 ml 350 ml Balance 2000 ml -375 ml 210 ml Intake Oral 480 ml 300 ml 560 ml IV Total 1850 ml Output Urine Total 600 ml 300 ml Drainage Total 80 ml 75 ml 50 ml Estimated Blood Loss 250 ml # Voids 3 # Bowel Movements 0 0 0 Result Diagram: 07/25/17 0454 Imaging Last Impressions Knee X-Ray 07/24/17 0653 Signed Impressions: Service Date/Time: Monday, July 24, 2017 10:16 - CONCLUSION: Intact total knee arthroplasty for technique. K. Elliott Smith MD Objective Remarks GENERAL: This is a well-nourished, well-developed patient, in no apparent distress. SKIN: No rashes, ecchymoses or lesions. Cool and dry. HEAD: Atraumatic. Normocephalic. No temporal or scalp tenderness. EYES: Pupils equal round and reactive. Extraocular motions intact. No scleral icterus. No injection or drainage. ENT: Nose without bleeding, purulent drainage or septal hematoma. Throat without erythema, tonsillar hypertrophy or exudate. Uvula midline. Airway patent. NECK: Trachea midline. No JVD or lymphadenopathy. Supple, nontender, no meningeal signs. CARDIOVASCULAR: Regular rate and rhythm without murmurs, gallops, or rubs. RESPIRATORY: Clear to auscultation. Breath sounds equal bilaterally. No wheezes , rales, or rhonchi. GASTROINTESTINAL: Abdomen soft, non-tender, nondistended. No hepato-splenomegaly , or palpable masses. No guarding. MUSCULOSKELETAL: Left knee is on immobilizer, there is moderate swelling, tender to palpation and range of motion is decreased. Negative Homans sign bilaterally. NEUROLOGICAL: Awake and alert. Cranial nerves II through XII intact. Motor and sensory grossly within normal limits. Five out of 5 muscle strength in all muscle groups. Normal speech Procedures SP left total knee arthroplasty Medications and IVs Current Medications Medications (Trade) Dose Ordered Sig/Stephanie Route Start Time Stop Time Status Last Admin Lactated Ringer's 1,000 ml @ 30 mls/hr Q24H PRN IV 07/24/17 05:45 07/27/17 05:44 07/24/17 05:45 Sodium Chloride 500 ml @ 30 mls/hr [id number] PRN IV 07/24/17 05:45 07/27/17 05:44 (Betadine 5% Antisepsis Kit) 1 applic GUITAR MAKER HAND PRN EACH NARE 07/24/17 05:45 07/27/17 05:44 07/24/17 06:00 (Chlorhexidine 2% Cloth) 3 pack GUITAR MAKER HAND PRN TOPICAL 07/24/17 05:45 07/27/17 05:44 07/24/17 05:20 (Hibiclens 4% Top Soln) 1 applic ONCE TOPICAL 07/24/17 05:45 07/27/17 05:44 Lactated Ringer's 1,000 ml @ 80 mls/hr [id number] IV 07/24/17 07:00 07/24/17 10:58 (Morphine Inj) 4 mg Q3H PRN IV PUSH 07/24/17 07:00 ([place] 7.5-325 Mg) 1 tab Q4H PRN PO 07/24/17 07:00 07/25/17 10:45 ([place] 7.5-325 Mg) 2 tab Q4H PRN PO 07/24/17 07:00 (Toradol Inj) 15 mg Q6H IVP 07/24/17 09:00 07/26/17 03:01 07/25/17 09:17 (Zofran Inj) 4 mg Q6H PRN IVP 07/24/17 07:00 (Colace) 100 mg BID PO 07/25/17 21:00 (Ambien) 5 mg HS PRN PO 07/24/17 07:00 (Milk Of Magnesia Liq) 30 ml DAILY PRN PO 07/24/17 07:00 (Ecotrin Ec) 81 mg BID PO 07/24/17 09:00 07/25/17 09:16 (Fiber Con) 1,250 mg HS PRN PO 07/24/17 07:00 (Fiber Con) 1,875 mg AC BREAKFAST PRN PO 07/24/17 07:00 07/25/17 09:24 (Cozaar) 25 mg DAILY PO 07/24/17 09:00 07/25/17 09:16 (Milk Of Magnesia Liq) 45 ml HS PO 07/24/17 21:00 07/24/17 21:00 (Oscal-D 250-125) 2 mg BID PO 07/24/17 09:00 07/25/17 09:17 (Theragran) 1 tab DAILY PO 07/24/17 09:00 07/25/17 09:16 Urinary Catheter: No Vascular Central Line Catheter: No A/P Problem List: (1) Status post total left knee replacement ICD Code: Z96.652 - Presence of left artificial knee joint Plan: Management as per orthopedic surgery. Continue Fibercon and Milk of Magnesia. Continue pain control with [place] tablets a morphine as needed for breakthrough pain. (2) Primary osteoarthritis of left knee ICD Code: M17.12 - Unilateral primary osteoarthritis, left knee Status: Resolved Plan: As above (3) HTN (hypertension) ICD Code: I10 - Essential (primary) hypertension Status: Acute Plan: BP slightly on the lower side. Will give a 500 ml normal saline bolus. Hold Losartan. Assessment and Plan DVT prophylaxis - on aspirin, continue SCD's Discharge Planning Per primary after BP stable. Problem Qualifiers (1) HTN (hypertension): Qualified Codes: I10 - Essential (primary) hypertension Gilbert Oneill MD Jul 25, 2017 12:54
[2017-07-25 16:03] VITALS: BP 105/69; PULSE 98; RESP 16; TEMP 96.4; O2SAT 99
[2017-07-25 21:20] VITALS: BP 115/67; PULSE 94; RESP 18; TEMP 97.5; O2SAT 97
[2017-07-25] MEDS: MAGNESIUM HYDROXIDE SUSP 30 ML CUP PO SCH (21:39)
[2017-07-25] MEDS: DOCUSATE SODIUM 100 MG CAP PO SCH (21:39)
[2017-07-26 00:05] VITALS: BP 108/65; PULSE 92; RESP 18; TEMP 98; O2SAT 94
[2017-07-26] MEDS: KETOROLAC TROMETHAMINE 30 MG/ML (IVP) VIAL IVP SCH (02:56)
[2017-07-26] MEDS: ACETAMINOPHEN/HYDROcodone 325 MG/7.5 MG TAB PO PRN ×3 (02:57→12:20)
[2017-07-26 03:20] VITALS: BP 106/58; PULSE 88; RESP 20; TEMP 97.4; O2SAT 94
[2017-07-26 04:53] LABS: HEMATOCRIT 21.1 % (35.0-46.0); HEMOGLOBIN 7.2 GM/DL (11.6-15.3)
--- NOTE | 2017-07-26 07:56 | PD.ORT.PN ---
Subjective Post Op Day #: 1 Subjective Remarks She is doing well. She has some pain in her knee at this time. She has been able to walk well. Range of Motion 0-97 Distance Walked 200 feet; then 400 feet with PT. Objective Vitals Vital Signs Date Time Temp Pulse Resp B/P (MAP) Pulse Ox O2 Delivery O2 Flow Rate FiO2 07/26/17 03:20 97.4 88 20 106/58 (74) 94 07/26/17 00:05 98.0 92 18 108/65 (79) 94 07/25/17 21:20 97.5 94 18 115/67 (83) 97 07/25/17 16:03 96.4 98 16 105/69 (81) 99 07/25/17 12:00 96.1 99 18 93/60 (71) 98 07/25/17 08:00 96.5 81 19 117/74 (88) 100 I/O 07/25/17 07/25/17 07/25/17 07/26/17 07/26/17 07/26/17 07:00 15:00 23:00 07:00 15:00 23:00 Intake Total 560 ml 480 ml 480 ml Output Total 350 ml 75 ml 10 ml 0 ml Balance 210 ml -75 ml 470 ml 480 ml Intake Oral 560 ml 480 ml 480 ml Output Urine Total 300 ml Drainage Total 50 ml 75 ml 10 ml 0 ml # Voids 5 2 4 # Bowel Movements 0 0 6 Result Diagram: 07/26/17 0416 Imaging Last 72 hours Impressions Knee X-Ray 07/24/17 0653 Signed Impressions: Service Date/Time: Monday, July 24, 2017 10:16 - CONCLUSION: Intact total knee arthroplasty for techniqueEthel WarnerEthel Smith MD Procedures Left total knee arthroplasty with Cem Triathlon prosthesis (uncemented) on . Objective Remarks She is resting comfortably supine in the bed in the [facility]. Her neurovascular status is intact. The dressing is dry and intact. Assessment & Plan Ortho Post Op Day #: 2 Problem List: (1) Primary osteoarthritis of left knee ICD Codes: M17.12 - Unilateral primary osteoarthritis, left knee Status: Resolved (2) Status post total left knee replacement ICD Codes: Z96.652 - Presence of left artificial knee joint Plan: Continue postop care and PT. Assessment and Plan Condition: Good. Orthopedically stable. DVT prophylaxis: TEDs, aspirin, sequentials. Discharge plans: Home with home health care. An appointment was scheduled through the office. Prescriptions: [place] 7.5/325. Sara Biswas MD ([place]) Jul 26, 2017 07:56
[2017-07-26 08:00] VITALS: BP 131/72; PULSE 95; RESP 18; TEMP 97; O2SAT 99
[2017-07-26] MEDS: CALCIUM/VITAMIN D 250 MG/125 U TAB PO SCH (08:01)
[2017-07-26] MEDS: MULTIVITAMIN TAB PO SCH (08:02)
[2017-07-26] MEDS: ASPIRIN EC 81 MG TABEC PO SCH (08:02)
[2017-07-26] MEDS: DOCUSATE SODIUM 100 MG CAP PO SCH (08:09)
[2017-07-26] MEDS: LOSARTAN 25 MG TAB PO SCH (08:09)
[2017-07-26] MEDS: LACTATED RINGER'S 1000 ML INJ 1,000 ML IV SCH (09:00)
[2017-07-26 12:00] VITALS: BP 104/56; PULSE 90; RESP 18; TEMP 97.7; O2SAT 96
== END 2017-07-26 15:22 | disposition home health service (06) | DRG 470 ==
LOC: HSDI 05:08 → N06B 12:21
PROVIDERS: ADMIT Orthopaedic Surgery; ATTEND Orthopaedic Surgery
PROC: 3E0T3BZ Introduction of Anesthetic Agent into Peripheral Nerves and Plexi, Percutaneous Approach (ICD-10-PCS; 2017-07-24)
PROC: 0SRD0J9 Replacement of Left Knee Joint with Synthetic Substitute, Cemented, Open Approach (ICD-10-PCS; principal; 2017-07-24 06:48)
DX: M17.12 Unilateral primary osteoarthritis, left knee (principal); I10 Essential (primary) hypertension; Z96.651 Presence of right artificial knee joint; K21.9 Gastro-esophageal reflux disease without esophagitis; M21.062 Valgus deformity, not elsewhere classified, left knee
CPT/HCPCS: 73560; 85014; 85018; 86850; 86900; 86901; 94150; 94664; C1776; C9290; J0131; J0690; J1100; J1580; J1885; J2250; J2370; J2405; J3010; J7120; J7613